=== PATIENT | female | born 1970 | race Caucasian/White ===

== ENCOUNTER → 2016-11-17 | Outpatient (CLI) | payer BC ==
--- NOTE | 2016-11-17 15:37 | P.BASOAP ---
Subjective Principal diagnosis: Morbid obesity Patient has for follow-up. She lap band placed in 2007. She had her gallbladder removed about a year and a half ago. Her band was emptied for the gallbladder surgery and she thinks she had one fill after that. She is not sure how much fluid is in her band. Her weight is actually higher than it was pre-band. She had considered sleeve gastrectomy at one point but this was going to be too expensive for her. About a week ago she had an episode of dysphagia. Following that the patient had some persistent dysphagia and upper abdominal pain. That is since resolved. Objective - Exam Abdomen: Soft, nontender, nondistended Assessment/Plan (1) Morbid obesity Narrative/Plan: Will check upper GI. Patient follow-up with me back in the office following that. No band adjustment at this time. Plan: Date: Initial Weight: Initial BMI: Current Weight: Current BMI: Type of Surgery: Total Volume in Band: Previous Volume: Volume Removed: Volume Added: Band Size:
[2016-11-17 16:03] VITALS: BMI 45.9
--- NOTE | 2016-11-17 16:42 | FL ---
EXAMINATION TYPE: FL barium swallow DATE OF EXAM: 11/17/2016 COMPARISON: NONE HISTORY: Dysphagia episode a week ago, band since 2007 TECHNIQUE: Fluoroscopy. FINDINGS: Preliminary overhead radiograph was obtained. The left band has a normal orientation, and t he laparoscopic band is intact. Fluoroscopic guidance was provided during procedure performed by Dr. Cardona. A total of 63 sec onds of fluoroscopic time was utilized during the procedure and 11 spot images was acquired. Omnipaque 350 was ingested for several swallows. The oral contrast flowed freely from the thoracic es ophagus on into the stomach and on into the proximal small bowel. There is no extravasation. No focal findings. AP, ROHIT, and OJEDA and lateral standing upright fluoroscopy was used for the examination. The patient tolerated the examination without symptoms. There were no incidental extraluminal findings. IMPRESSION: Fluoroscopic lap banding evaluation as as discussed.
== END | disposition home or self-care (01) ==
LOC: BARWHC3 14:12
PROVIDERS: ATTEND Surgery
DX: E66.01 Morbid (severe) obesity due to excess calories (principal); Z71.3 Dietary counseling and surveillance; R13.10 Dysphagia, unspecified; Z98.84 Bariatric surgery status
CPT/HCPCS: 74220; 97803; 99201

== ENCOUNTER → 2018-06-28 | Outpatient (CLI) | payer OTHER ==
[2018-06-28 13:38] VITALS: BP 120/86; PULSE 111; RESP 16; TEMP 97.8; BMI 41.9
--- NOTE | 2018-06-28 18:23 | P.BASOAP ---
Subjective Progress Note Date: 06/28/18 Principal diagnosis: Morbid obesity Patient returns today for evaluation. Patient last seen in 2017. Patient had a upper GI following that which was normal. She says she has episodes of emesis from dysphasia 3 times per week. Usually to meats. She has lost 25 pounds. She is considering conversion to an alternate bariatric procedure. Objective - Vital Signs Vital signs: Vital Signs Temp 97.8 F 06/28/18 13:34 Pulse 111 H 06/28/18 13:34 Resp 16 06/28/18 13:34 BP 120/86 06/28/18 13:34 Pulse Ox Intake & Output 06/27/18 06/28/18 06/28/18 18:59 06:59 18:59 Weight 114.305 kg - Exam Abdomen: Soft, nontender, nondistended Assessment/Plan (1) Morbid obesity Narrative/Plan: Patient interested in having the band loosened at this time. The patient's lap band port was palpated. The site was aseptically prepped. The Burks needle was advanced into the port. A total of 1 ml of fluid was activated for a total of approximately 4 m. Pressure was held and a sterile dressing was applied. We discussed the options of conversion. Patient leaning towards gastric bypass which I believe is reasonable. She will investigate her insurance coverage for this procedure. She plans to attend an upcoming bariatric seminar. Plan: Date: 06/28/18 Initial Weight: 114.305 kg Initial BMI: 41.9 Current Weight: 114.305 kg Current BMI: 41.9 Type of Surgery: Total Volume in Band: Previous Volume: Volume Removed: Volume Added: Band Size:
== END | disposition home or self-care (01) ==
LOC: BARWHC3 13:20
PROVIDERS: ATTEND Surgery
DX: E66.01 Morbid (severe) obesity due to excess calories (principal); Z68.41 Body mass index [BMI] 40.0-44.9, adult; Z98.84 Bariatric surgery status
CPT/HCPCS: 99211

== ENCOUNTER → 2018-08-24 | Outpatient (CLI) | payer OTHER ==
[2018-08-24 15:24] VITALS: BP 114/78; PULSE 64; RESP 16; TEMP 98; BMI 43.6
--- NOTE | 2018-08-24 15:42 | P.HPBAR ---
Bariatric H&P - History & Physicial H&P Date: 08/24/18 History & Physicial: Visit/CC: WANTS BAND OUT/REVISION Patient initial contact: Initial weight: 114.305 kg Initial weight in pounds: 252.00 Height: 5 ft 5 in Initial BMI: 41.9 Last weight: Current weight: 118.841 kg Current weight in pounds: 262.00 Current BMI: 43.6 [place] body weight (based on NIH guidelines): 56.699 kg Excess body weight loss: The patient is a 47 year-old F who presents for Bariatric Assessment. HPI: She comes in with troubles with band and dysphagia. Band removal. Recommend EGD. All fluid removed from the band with GERD. She reports trouble with swallowing after her band placement. She is looking into the gastric bypass. Gallbladder is out. ABDOMEN: Protuberant MS: 1+ edema ASSESSMENT: 1. Adjustable gastric band 2. GERD PLAN: 1. Band removal with EGD 2. Esophagram for esophageal motility. 3. Labs with EKG 4. She is looking the gastric bypass Past Medical History Past Medical History: Hyperlipidemia, Hypertension History of Any Multi-Drug Resistant Organisms: None Reported Past Surgical History: Tubal Ligation Additional Past Surgical History / Comment(s): lap band Past Psychological History: No Psychological Hx Reported Smoking Status: Never smoker Past Alcohol Use History: Rare Past Drug Use History: None Reported Surgical - Exam Vital Signs Temp Pulse Resp BP 98 F 64 16 114/78 08/24/18 15:21 08/24/18 15:21 08/24/18 15:21 08/24/18 15:21 Bariatric Checklist Checklist: Plan: Checklist: EGD: 1. Hiatal hernia: 2. H. Pylori: HgbA1c: Vitamin D: Smoking: Never smoker Primary care physician referral: [facility] Psychiatry clearance: Cardiology clearance: Sleep study: Diet journal: VTE risk score: VTE risk level: Rehab needs at discharge:
[2018-08-24 16:34] LABS: HCT 37.5 % (34.0-46.0); HGB 12.5 gm/dL (11.4-16.0); MCH 29.4 pg (25.0-35.0); MCHC 33.3 g/dL (31.0-37.0); MCV 88.5 fL (80.0-100.0); Mean Platelet Volume 6.2; Platelet Count 262 k/uL (150-450); RBC 4.24 m/uL (3.80-5.40); RDW 14.8 % (11.5-15.5); WBC 8.3 k/uL (3.8-10.6)
[2018-08-24 16:44] LABS: INR 0.9 (<1.2); Partial Thromboplastin Time 25.6 sec (22.0-30.0); Prothrombin Time 9.5 sec (9.0-12.0)
[2018-08-25 01:33] LABS: Iron Saturation 15.64 (12.00-45.00)
[2018-08-25 01:40] LABS: Albumin 4.4 g/dL (3.80-4.90); Albumin/Globulin Ratio 2.1 (1.60-3.17); Anion Gap 10.9 mmol/L (4.00-12.00); Calcium 9.2 mg/dL (8.7-10.3); Carbon Dioxide 25.1 mmol/L (21.6-31.8); Globulin 2.1 g/dL (1.6-3.3); LDL Cholesterol,Calculated 92.2 mg/dL (0.0-131.0); Phosphorus 3.9 mg/dL (2.4-5.1); Total Bilirubin 0.4 mg/dL (0.3-1.2); Total Protein 6.5 g/dL (6.2-8.2); VLDL Calculation 51.8 mg/dL (5.00-40.00)
[2018-08-25 01:43] LABS: Vitamin D 25 Hydroxy 22.3 ng/mL (30.0-100.0)
[2018-08-25 01:45] LABS: Folate, Serum 11.6 ng/mL
[2018-08-25 01:54] LABS: Parathyroid Hormone Intact 77.6 pg/mL (14.0-72.0)
[2018-08-25 03:14] LABS: Hemoglobin A1C 6.7 % (4.0-6.0)
[2018-08-25 14:55] LABS: Zinc, Serum 60 ug/dL (60-130)
[2018-08-26 06:14] LABS: Vitamin A 45 ug/dL (38-106)
[2018-08-26 10:08] LABS: Vit B1(Thiamine) 83 ug/L (38-122)
[2018-08-27 13:22] LABS: Selenium 107 mcg/L (63-160)
== END ==
LOC: BARWHC3 13:46
PROVIDERS: ATTEND Surgery Plastic and Reconstructive Surgery
DX: K95.09 Other complications of gastric band procedure (principal); R13.10 Dysphagia, unspecified; K21.9 Gastro-esophageal reflux disease without esophagitis; E66.01 Morbid (severe) obesity due to excess calories; E78.5 Hyperlipidemia, unspecified; I10 Essential (primary) hypertension; E21.1 Secondary hyperparathyroidism, not elsewhere classified; D50.9 Iron deficiency anemia, unspecified; E44.0 Moderate protein-calorie malnutrition; E55.9 Vitamin D deficiency, unspecified; K74.1 Hepatic sclerosis; N19 Unspecified kidney failure; K50.90 Crohn's disease, unspecified, without complications; Z90.49 Acquired absence of other specified parts of digestive tract; Z98.51 Tubal ligation status; Z98.84 Bariatric surgery status; Z68.41 Body mass index [BMI] 40.0-44.9, adult
CPT/HCPCS: 84255; 84134; 84425; 80061; 80053; 82607; 82728; 82525; 82746; 83540; 83550; 83735; 84100; 84443; 84590; 84630; 85027; 85610; 85730; 82306; 83970; 83036; 36415; G0463; 99211

== ENCOUNTER 2018-12-19 12:04 | Day surgery (SDC) | payer OTHER ==
[2018-12-15 15:52] VITALS: BMI 43.7
--- NOTE | 2018-12-18 13:24 | P.GSHP ---
History of Present Illness H&P Date: 12/19/18 CHIEF COMPLAINT: GERD HISTORY OF PRESENT ILLNESS: The patient is a 47-year-old female who presents reports gastroesophageal reflux disease. Upper endoscopy was offered for further evaluation and management. PAST MEDICAL HISTORY: Please see list. PAST SURGICAL HISTORY: Please see list. MEDICATIONS: Please see list. ALLERGIES: Please see list. SOCIAL HISTORY: No illicit drug use FAMILY HISTORY: No reports of Crohn disease or ulcerative colitis. REVIEW OF ORGAN SYSTEMS: CONSTITUTIONAL: No reports of fevers or chills. GI: Denies any blood in stools or constipation. PHYSICAL EXAM: VITAL SIGNS: Stable GENERAL: Well-developed and pleasant in no acute distress. HEENT: No scleral icterus. Extraocular movements grossly intact. Moist buccal mucosa. NECK: Supple without lymphadenopathy. CHEST: Unlabored respirations. Equal bilateral excursions. CARDIOVASCULAR: Regular rate and rhythm. Distal 2+ pulses. ABDOMEN: Soft, nondistended. MUSCULOSKELETAL: No clubbing, cyanosis, or edema. ASSESSMENT: 1. Gastroesophageal reflux disease PLAN: 1. Recommend proceeding with an upper endoscopy Past Medical History Past Medical History: Diabetes Mellitus, Hyperlipidemia, Hypertension History of Any Multi-Drug Resistant Organisms: None Reported Past Surgical History: Bariatric Surgery, Cholecystectomy, Tubal Ligation Additional Past Surgical History / Comment(s): lap band. EGD Past Anesthesia/Blood Transfusion Reactions: Postoperative Nausea & Vomiting (PONV) Smoking Status: Never smoker - Past Family History Mother Family Medical History: No Reported History Medications and Allergies Home Medications Medication Instructions Recorded Confirmed Type Lisinopril [Zestril] 10 mg PO HS 03/03/15 12/15/18 History Pravastatin Sodium [Pravachol] 10 mg PO HS 03/03/15 12/15/18 History Furosemide [Lasix] 10 mg PO DAILY 11/20/16 12/15/18 History metFORMIN HCL [Glucophage] 500 mg PO DAILY 06/28/18 12/15/18 History Ergocalciferol [Vitamin D2 50,000 unit PO TH 08/30/18 12/15/18 History (DRISDOL)] Venlafaxine HCl [Effexor XR] 225 mg PO HS 12/15/18 12/15/18 History Allergies Allergy/AdvReac Type Severity Reaction Status Date / Time No Known Allergies Allergy Verified 12/15/18 15:37
[~2018-12-19 12:04] MED LIST: LACTATED RINGERS 1,000 ML IV SCH; LIDOCAINE 1% 20 ML VIAL (10MG/ML) FOR IV START INTRADERMA PRN
[2018-12-19] MEDS ORDERED: LACTATED RINGERS 1,000 ML IV ONE (12:34)
[2018-12-19 12:39] VITALS: TEMP 97.8
[2018-12-19 12:43] LABS: Glucose,Whole Blood 119 mg/dL (75-99)
[2018-12-19] MEDS ORDERED: LIDOCAINE 1% 20 ML VIAL (10MG/ML) FOR IV START INTRADERMA ONE (12:43)
[2018-12-19] MEDS ORDERED: PROPOFOL 10 MG/ML 20 ML VIAL IV ONE (12:54)
[2018-12-19] MEDS ORDERED: LIDOCAINE 1% INJ 10MG/ML (20 ML MDV) ONE (12:54)
--- NOTE | 2018-12-19 13:05 | P.PCN ---
Date of Procedure: 12/19/18 Description of Procedure: PREOPERATIVE DIAGNOSIS: Gastroesophageal reflux disease. Morbid obesity. POSTOPERATIVE DIAGNOSIS: Morbid obesity. Gastritis. Gastroesophageal reflux disease. Diaphragmatic hiatal hernia OPERATION: Esophagogastroduodenoscopy with biopsies along antrum. SURGEON: Elvia Burrows MD ANESTHESIA: MAC. INDICATIONS: The patient is a 47-year-old female who presents with a history of reflux disease. Benefits and risks of the procedure were described. Informed consent was obtained. DESCRIPTION: The patient was brought into the endoscopy suite and laid in the left lateral decubitus position. An Olympus gastroscope was passed along the posterior oropharynx down to the distal esophagus where the squamocolumnar junction was encountered at 35 cm from the incisors. The stomach was entered and no bile reflux was found. Additional findings are listed below. Biopsies with cold forceps were obtained of the antrum. The first through third portion of the duodenum was examined and unremarkable. Retroflexion of the scope confirmed Hill grade 3 lower esophageal valve. The squamocolumnar junction demonstrated LA grade B erosive esophagitis. The stomach was desufflated. The patient tolerated the procedure well. FINDINGS: Squamocolumnar junction 35 cm from the incisors. Diaphragmatic hiatus at 40 cm. Hiatal hernia, 5 cm Hill grade 3 lower esophageal valve. LA grade B erosive esophagitis. No active duodenitis. Chronic gastritis RECOMMENDATIONS: Upper endoscopy as needed. Plan - Discharge Summary Discharge Rx Participant: No New Discharge Prescriptions: No Action Pravastatin Sodium [Pravachol] 10 mg PO HS Lisinopril [Zestril] 10 mg PO HS Furosemide [Lasix] 10 mg PO DAILY metFORMIN HCL [Glucophage] 500 mg PO DAILY Ergocalciferol [Vitamin D2 (DRISDOL)] 50,000 unit PO TH Venlafaxine HCl [Effexor XR] 225 mg PO HS Discharge Medication List Lisinopril [Zestril] 10 mg PO HS 03/03/15 [History] Pravastatin Sodium [Pravachol] 10 mg PO HS 03/03/15 [History] Furosemide [Lasix] 10 mg PO DAILY 11/20/16 [History] metFORMIN HCL [Glucophage] 500 mg PO DAILY 06/28/18 [History] Ergocalciferol [Vitamin D2 (DRISDOL)] 50,000 unit PO TH 08/30/18 [History] Venlafaxine HCl [Effexor XR] 225 mg PO HS 12/15/18 [History] Follow up Appointment(s)/Referral(s): [facility] [[facility]-STAFF] - 01/04/19 Patient Instructions/Handouts: *Sur[facility] - (Anesthesia) Endoscopy Discharge Instructions, Hiatal Hernia (GEN), Gastroesophageal Reflux Disease (DC) Discharge Disposition: HOME SELF-CARE
[2018-12-19 13:09] VITALS: RESP 16
[2018-12-19 13:27] VITALS: BP 111/76; PULSE 74
== END 2018-12-19 13:34 | disposition home or self-care (01) ==
LOC: ORWHC2ENDO 12:04
PROVIDERS: ATTEND Surgery Plastic and Reconstructive Surgery
DX: K21.9 Gastro-esophageal reflux disease without esophagitis (principal); K29.50 Unspecified chronic gastritis without bleeding; K20.8 Other esophagitis; K44.9 Diaphragmatic hernia without obstruction or gangrene; I10 Essential (primary) hypertension; E78.5 Hyperlipidemia, unspecified; E11.9 Type 2 diabetes mellitus without complications; F41.9 Anxiety disorder, unspecified; Z98.84 Bariatric surgery status; E66.01 Morbid (severe) obesity due to excess calories; Z68.41 Body mass index [BMI] 40.0-44.9, adult; Z90.49 Acquired absence of other specified parts of digestive tract; Z98.51 Tubal ligation status; Z79.84 Long term (current) use of oral hypoglycemic drugs; Z79.899 Other long term (current) drug therapy
CPT/HCPCS: 43239; 88305; 81025; J2001; J2704

== ENCOUNTER → 2019-01-04 | Outpatient (CLI) | payer OTHER ==
[2019-01-04 16:09] VITALS: BP 135/80; PULSE 78; TEMP 98.1; BMI 43.6
--- NOTE | 2019-01-04 16:59 | P.PN ---
Subjective Progress Note Date: 01/04/19 DATE OF SERVICE: 01/04/2019 CHIEF COMPLAINT: Bariatric evaluation. HISTORY OF PRESENT ILLNESS: Dinorah Ponce is a 47-year-old female who comes with lifelong morbid obesity. She comes in with troubles with her gastric band and dysphagia. She is looking into the gastric bypass. She is doing medical s upervised weight loss. She completed an upper endoscopy. She is looking to have her band removed. At height of 5 feet 5 inches, her ideal body weight is 149 pounds. She comes in 261 pounds, unchanged since her last visit 4 months ago. Her body mass index was 43.6. She is 119 pounds overweight. PAST MEDICAL HISTORY: 1. Morbid obesity due to excess calories 2. Body mass index of 43.6, initial 3. Osteoarthritis of the knees. 4. Osteoarthritis of the lower back. 5. Hypertensive heart disease. 6. Gastroesophageal reflux disease 7. Hyperlipidemia 8. Depressive disorder 9. Diabetes type 2 10. Vitamin D deficiency PAST SURGICAL HISTORY: 1. Tubal ligation 2. Cholecystectomy HOME MEDICATIONS: ALLERGIES: Medications and Allergies Home Medications Medication Instructions Recorded Confirmed Type Lisinopril [Zestril] 10 mg PO DAILY 03/03/15 08/25/18 History Pravastatin Sodium [Pravachol] 10 mg PO HS 03/03/15 08/25/18 History Furosemide [Lasix] 1 tab PO DAILY 11/20/16 08/25/18 History Venlafaxine HCl [Effexor] 50 mg PO DAILY 06/28/18 08/25/18 History metFORMIN HCL [Glucophage] 500 mg PO DAILY 06/28/18 08/25/18 History Ergocalciferol [Vitamin D2 50,000 unit PO WEEKLY 08/30/18 08/30/18 History (DRISDOL)] Allergies Allergy/AdvReac Type Severity Reaction Status Date / Time No Known Allergies Allergy Verified 08/25/18 13:06 SOCIAL HISTORY: No past tobacco use. FAMILY HISTORY: No family history of ulcerative colitis disease or Crohn's disease. Family history of morbid obesity. No lupus in the family. No reports of stomach or esophageal cancer. REVIEW OF ORGAN SYSTEMS: CONSTITUTIONAL: At height of 5 feet 5 inches, her ideal body weight is 149 pounds. She comes in 261 pounds. Her body mass index was 43.6. She is 119 po unds overweight. HEENT: Denies any active troubles with vision or hearing. No troubles with swallowing. ENDOCRINE: Has blood sugar intolerance. No hypothyroidism. CARDIOVASCULAR: No reports of palpitations or heart attacks or chest pain. RESPIRATORY: No daytime somnolence. No asthma. GI: Denies any bright red blood per rectum. No diarrhea. No constipation. MUSCULOSKELETAL: Has lower back pain and joint pain. Has osteoarthritis of the knees. NEURO: No headaches. No seizure disorders. PSYCH: Has depression. No suicidal ideation. RHEUMATOLOGIC: No lupus. No rheumatoid arthritis. HEMATOLOGIC: Denies any abnormal bleeding or bruising. No personal history of DVTs. SKIN: No rash. No skin cancer. PHYSICAL EXAM: VITAL SIGNS: Height 5 foot 5 inches, weight 261 pounds. BMI 43.6 Vital Signs Temp 98.1 F 01/04/19 16:06 Pulse 78 01/04/19 16:06 Resp BP 135/80 01/04/19 16:06 Pulse Ox GENERAL: Well-developed in no acute distress. HEENT: No scleral icterus. Extraocular movements grossly intact. Hears conversational speech. No nasal drainage. NECK: Supple without lymphadenopathy. CHEST: Nonlabored respirations with equal bilateral excursions. CARDIOVASCULAR: Regular rate and regular rhythm. Distal 2+ pulses. ABDOMEN: Obese, soft, nontender, nondistended. Protuberant. MUSCULOSKELETAL: No clubbing, cyanosis. Gross strength 5/5 distal lower extremities. 1+ edema pre-tibial. NEURO: No focal or lateralizing signs. Cranial nerves 2 through 12 grossly within normal limits. PSYCH: Appropriate affect. Alert and oriented to person, place and time. SKIN: Good skin turgor. Well perfused. EGD FINDINGS: Squamocolumnar junction 35 cm from the incisors. Diaphragmatic hiatus at 40 cm. Hiatal hernia, 5 cm Hill grade 3 lower esophageal valve. LA grade B erosive esophagitis. No active duodenitis. Chronic gastritis Final Pathologic Diagnosis GASTRIC ANTRUM, BIOPSY: Chronic gastritis. Helicobacter pylori organisms are not identified on routine H+E sections. LABS: Hemoglobin A1C 6.7%, Triglycerides elevated, Vitamin D low 22, PTH elevated ASSESSMENT: 1. Morbid obesity due to excess calories 2. Body mass index of 43.6, initial 3. Osteoarthritis of the knees. 4. Osteoarthritis of the lower back. 5. Hypertensive heart disease. 6. Gastroesophageal reflux disease 7. Hyperlipidemia 8. Depressive disorder 9. Diabetes type 2 10. Vitamin D deficiency 11. Adjustable gastric band with complications 12. Esophageal dysmotility 13. Dysphagia due to adjustable gastric band 14. Hiatal hernia 15. Secondary hyperparathyroidism PLAN: 1. She has new hiatal hernia, may need repair 2. Recommend removal of the band for complications from her adjustable gastric band including abdominal pain. 3. She wants the bypass to address her reflux disease. She is high risk as a conversion. 4. Vitamin D supplement 10,000 daily for treatment of Vitamin D deficiency and new secondary hyperparathyroidism. 5. Recommend food and exercise journal. Objective - Vital Signs Vital signs: Vital Signs Temp 98.1 F 01/04/19 16:06 Pulse 78 01/04/19 16:06 Resp BP 135/80 01/04/19 16:06 Pulse Ox Intake & Output 01/03/19 01/04/19 01/04/19 18:59 06:59 18:59 Weight 118.841 kg
== END | disposition home or self-care (01) ==
LOC: BARWHC3 15:45
PROVIDERS: ATTEND Surgery Plastic and Reconstructive Surgery
DX: E66.01 Morbid (severe) obesity due to excess calories (principal); M17.0 Bilateral primary osteoarthritis of knee; I11.9 Hypertensive heart disease without heart failure; K21.9 Gastro-esophageal reflux disease without esophagitis; E78.5 Hyperlipidemia, unspecified; F32.9 Major depressive disorder, single episode, unspecified; E11.9 Type 2 diabetes mellitus without complications; E55.9 Vitamin D deficiency, unspecified; K22.4 Dyskinesia of esophagus; R13.10 Dysphagia, unspecified; K44.9 Diaphragmatic hernia without obstruction or gangrene; N25.81 Secondary hyperparathyroidism of renal origin; K95.09 Other complications of gastric band procedure; Z68.41 Body mass index [BMI] 40.0-44.9, adult; Z79.899 Other long term (current) drug therapy; Z79.84 Long term (current) use of oral hypoglycemic drugs; Z90.49 Acquired absence of other specified parts of digestive tract; Z98.51 Tubal ligation status
CPT/HCPCS: 99211

== ENCOUNTER → 2019-01-16 | Outpatient (CLI) | payer OTHER ==
[2019-01-16 09:46] VITALS: BMI 44.2
== END | disposition home or self-care (01) ==
LOC: BARWHC3 08:36
PROVIDERS: ATTEND Surgery Plastic and Reconstructive Surgery
DX: E66.01 Morbid (severe) obesity due to excess calories (principal); Z68.41 Body mass index [BMI] 40.0-44.9, adult
CPT/HCPCS: 97804

== ENCOUNTER → 2019-05-10 | Outpatient (CLI) | payer OTHER ==
[2019-05-10 16:35] LABS: Basophils % (A) 0 %; Eosinophils # (A) 0.1 k/uL (0-0.7); Eosinophils % (A) 1 %; HCT 43.9 % (34.0-46.0); HGB 14.4 gm/dL (11.4-16.0); Lymphocytes # (A) 1.7 k/uL (1.0-4.8); Lymphocytes % (A) 24 %; MCH 29.2 pg (25.0-35.0); MCHC 32.7 g/dL (31.0-37.0); MCV 89.1 fL (80.0-100.0); Mean Platelet Volume 6.6; Monocytes # (A) 0.3 k/uL (0-1.0); Monocytes % (A) 5 %; Neutrophils # (A) 4.6 k/uL (1.3-7.7); Neutrophils % (A) 67 %; Platelet Count 285 k/uL (150-450); RBC 4.93 m/uL (3.80-5.40); RDW 13.6 % (11.5-15.5); WBC 6.8 k/uL (3.8-10.6)
[2019-05-10 16:42] LABS: ALT 25 U/L (9-52); AST 26 U/L (14-36); African American GFR (CKD) >90 (>60 ml/min/1.73 sqM); Albumin 4.6 g/dL (3.5-5.0); Alkaline Phosphatase 92 U/L (38-126); Anion Gap 10 mmol/L; Blood Urea Nitrogen 10 mg/dL (7-17); Carbon Dioxide 27 mmol/L (22-30); Chloride 101 mmol/L (98-107); Glucose 144 mg/dL (74-99); Non-African American GFR(CKD) >90 (>60 ml/min/1.73 sqM); Potassium 4.3 mmol/L (3.5-5.1); Sodium 138 mmol/L (137-145); Total Bilirubin 0.8 mg/dL (0.2-1.3); Total Protein 7.7 g/dL (6.3-8.2)
== END | disposition home or self-care (01) ==
LOC: LABPAT 15:51
PROVIDERS: ATTEND Surgery Plastic and Reconstructive Surgery
DX: Z01.812 Encounter for preprocedural laboratory examination (principal); Z98.84 Bariatric surgery status
CPT/HCPCS: 36415; 80053; 85025

== ENCOUNTER → 2019-05-10 | Outpatient (CLI) | payer OTHER ==
--- NOTE | 2019-05-10 15:30 | P.PN ---
Subjective Progress Note Date: 05/10/19 DATE OF SERVICE: 05/10/2019 CHIEF COMPLAINT: Bariatric evaluation. HISTORY OF PRESENT ILLNESS: Dinorah Ponce is a 47-year-old female who comes with lifelong morbid obesity. She comes in with troubles with her gastric band and dysphagia. She is looking into the gastric bypass. She has completed medical supervised weight loss. She reports moderate gastroesophageal reflux disease. At height of 5 feet 5 inches, her ideal body weight is 149 pounds. She comes in 265 pounds from 261 pounds, 5 months ago. Her body mass index is 44.3. She is 116 pounds overweight. PAST MEDICAL HISTORY: 1. Morbid obesity due to excess calories 2. Body mass index of 44.3 3. Osteoarthritis of the knees. 4. Osteoarthritis of the lower back. 5. Hypertensive heart disease. 6. Gastroesophageal reflux disease 7. Hyperlipidemia 8. Depressive disorder 9. Diabetes type 2 10. Vitamin D deficiency PAST SURGICAL HISTORY: 1. Tubal ligation 2. Cholecystectomy HOME MEDICATIONS: ALLERGIES: Medications and Allergies Home Medications Medication Instructions Recorded Confirmed Type Lisinopril [Zestril] 10 mg PO DAILY 03/03/15 08/25/18 History Pravastatin Sodium [Pravachol] 10 mg PO HS 03/03/15 08/25/18 History Furosemide [Lasix] 1 tab PO DAILY 11/20/16 08/25/18 History Venlafaxine HCl [Effexor] 50 mg PO DAILY 06/28/18 08/25/18 History metFORMIN HCL [Glucophage] 500 mg PO DAILY 06/28/18 08/25/18 History Ergocalciferol [Vitamin D2 50,000 unit PO WEEKLY 08/30/18 08/30/18 History (DRISDOL)] Allergies Allergy/AdvReac Type Severity Reaction Status Date / Time No Known Allergies Allergy Verified 08/25/18 13:06 SOCIAL HISTORY: No past tobacco use. FAMILY HISTORY: No family history of ulcerative colitis disease or Crohn's disease. Family history of morbid obesity. No lupus in the family. No reports of stomach or esophageal cancer. REVIEW OF ORGAN SYSTEMS: CONSTITUTIONAL: At height of 5 feet 5 inches, her ideal body weight is 149 pounds. Her body mass index was 44.3. She is 116 pounds overweight. HEENT: Denies any active troubles with vision or hearing. No troubles with swallowing. ENDOCRINE: Has blood sugar intolerance. No hypothyroidism. CARDIOVASCULAR: No reports of palpitations or heart attacks or chest pain. RESPIRATORY: No daytime somnolence. No asthma. GI: Denies any bright red blood per rectum. No diarrhea. No constipation. MUSCULOSKELETAL: Has lower back pain and joint pain. Has osteoarthritis of the knees. NEURO: No headaches. No seizure disorders. PSYCH: Has depression. No suicidal ideation. RHEUMATOLOGIC: No lupus. No rheumatoid arthritis. HEMATOLOGIC: Denies any abnormal bleeding or bruising. No personal history of DVTs. SKIN: No rash. No skin cancer. PHYSICAL EXAM: VITAL SIGNS: Height 5 foot 5 inches, weight 265 pounds. BMI 44.3 Vital Signs Temp 97.7 F 05/10/19 15:29 Pulse 84 05/10/19 15:29 Resp BP 137/88 05/10/19 15:29 Pulse Ox GENERAL: Well-developed in no acute distress. HEENT: No scleral icterus. Extraocular movements grossly intact. Hears conve rsational speech. No nasal drainage. NECK: Supple without lymphadenopathy. CHEST: Nonlabored respirations with equal bilateral excursions. CARDIOVASCULAR: Regular rate and regular rhythm. Distal 2+ pulses. ABDOMEN: Obese, soft, nontender, nondistended. Protuberant. MUSCULOSKELETAL: No clubbing, cyanosis. Gross strength 5/5 distal lower extremities. 1+ edema pre-tibial. NEURO: No focal or lateralizing signs. Cranial nerves 2 through 12 grossly within normal limits. PSYCH: Appropriate affect. Alert and oriented to person, place and time. SKIN: Good skin turgor. Well perfused. ASSESSMENT: 1. Morbid obesity due to excess calories 2. Body mass index of 44.3 3. Osteoarthritis of the knees. 4. Osteoarthritis of the lower back. 5. Hypertensive heart disease. 6. Gastroesophageal reflux disease 7. Hyperlipidemia 8. Depressive disorder 9. Diabetes type 2 10. Vitamin D deficiency 11. Adjustable gastric band with complications 12. Esophageal dysmotility 13. Dysphagia due to adjustable gastric band 14. Hiatal hernia 15. Secondary hyperparathyroidism PLAN: 1. She comes in with complications with her band and dysphagia and pain. 2. Recommend band removal of her adjustable gastric band. 3. She is elevated risk for complications with history of hiatal hernia.
[2019-05-10 15:41] VITALS: BP 137/88; PULSE 84; TEMP 97.7; BMI 44.2
== END | disposition home or self-care (01) ==
LOC: BARWHC3 14:13
PROVIDERS: ATTEND Surgery Plastic and Reconstructive Surgery
DX: E66.01 Morbid (severe) obesity due to excess calories (principal); Z68.41 Body mass index [BMI] 40.0-44.9, adult; M17.0 Bilateral primary osteoarthritis of knee; M47.816 Spondylosis without myelopathy or radiculopathy, lumbar region; I11.9 Hypertensive heart disease without heart failure; K21.9 Gastro-esophageal reflux disease without esophagitis; E78.5 Hyperlipidemia, unspecified; F32.9 Major depressive disorder, single episode, unspecified; E11.9 Type 2 diabetes mellitus without complications; E55.9 Vitamin D deficiency, unspecified; K44.9 Diaphragmatic hernia without obstruction or gangrene; N25.81 Secondary hyperparathyroidism of renal origin; K95.09 Other complications of gastric band procedure; K22.4 Dyskinesia of esophagus; Z90.49 Acquired absence of other specified parts of digestive tract; Z98.51 Tubal ligation status; Z79.84 Long term (current) use of oral hypoglycemic drugs; Z79.899 Other long term (current) drug therapy
CPT/HCPCS: 99211

== ENCOUNTER 2019-05-22 11:37 | Day surgery (SDC) | payer OTHER ==
[2019-05-18 10:04] VITALS: BMI 43.2
--- NOTE | 2019-05-22 09:24 | P.GSHP ---
History of Present Illness H&P Date: 05/22/19 DATE OF SERVICE: 05/22/2019 CHIEF COMPLAINT: complications from adjustable gastric band HISTORY OF PRESENT ILLNESS: Dinorah Ponce is a 47-year-old female who comes with lifelong morbid obesity. She comes in with troubles with her gastric band and dysphagia. She is looking into the gastric bypass. She is doing medical supervised weight loss. She completed an upper endoscopy. She is looking to have her band removed. At height of 5 feet 5 inches, her ideal body weight is 149 pounds. She comes in 261 pounds, unchanged since her last visit 4 months ago. Her body mass index was 43.6. She is 119 pounds overweight. PAST MEDICAL HISTORY: 1. Morbid obesity due to excess calories 2. Body mass index of 43.6, initial 3. Osteoarthritis of the knees. 4. Osteoarthritis of the lower back. 5. Hypertensive heart disease. 6. Gastroesophageal reflux disease 7. Hyperlipidemia 8. Depressive disorder 9. Diabetes type 2 10. Vitamin D deficiency PAST SURGICAL HISTORY: 1. Tubal ligation 2. Cholecystectomy HOME MEDICATIONS: ALLERGIES: Medications and Allergies Home Medications Medication Instructions Recorded Confirmed Type Lisinopril [Zestril] 10 mg PO DAILY 03/03/15 08/25/18 History Pravastatin Sodium [Pravachol] 10 mg PO HS 03/03/15 08/25/18 History Furosemide [Lasix] 1 tab PO DAILY 11/20/16 08/25/18 History Venlafaxine HCl [Effexor] 50 mg PO DAILY 06/28/18 08/25/18 History metFORMIN HCL [Glucophage] 500 mg PO DAILY 06/28/18 08/25/18 History Ergocalciferol [Vitamin D2 50,000 unit PO WEEKLY 08/30/18 08/30/18 History (DRISDOL)] Allergies Allergy/AdvReac Type Severity Reaction Status Date / Time No Known Allergies Allergy Verified 08/25/18 13:06 SOCIAL HISTORY: No past tobacco use. FAMILY HISTORY: No family history of ulcerative colitis disease or Crohn's disease. Family history of morbid obesity. No lupus in the family. No reports of stomach or esophageal cancer. REVIEW OF ORGAN SYSTEMS: CONSTITUTIONAL: At height of 5 feet 5 inches, her ideal body weight is 149 pounds. She comes in 261 pounds. Her body mass index was 43.6. She is 119 pounds overweight. HEENT: Denies any active troubles with vision or hearing. No troubles with swallowing. ENDOCRINE: Has blood sugar intolerance. No hypothyroidism. CARDIOVASCULAR: No reports of palpitations or heart attacks or chest pain. RESPIRATORY: No daytime somnolence. No asthma. GI: Denies any bright red blood per rectum. No diarrhea. No constipation. MUSCULOSKELETAL: Has lower back pain and joint pain. Has osteoarthritis of the knees. NEURO: No headaches. No seizure disorders. PSYCH: Has depression. No suicidal ideation. RHEUMATOLOGIC: No lupus. No rheumatoid arthritis. HEMATOLOGIC: Denies any abnormal bleeding or bruising. No personal history of DVTs. SKIN: No rash. No skin cancer. PHYSICAL EXAM: VITAL SIGNS: Height 5 foot 5 inches, weight 261 pounds. BMI 43.6 GENERAL: Well-developed in no acute distress. HEENT: No scleral icterus. Extraocular movements grossly intact. Hears conversational speech. No nasal drainage. NECK: Supple without lymphadenopathy. CHEST: Nonlabored respirations with equal bilateral excursions. CARDIOVASCULAR: Regular rate and regular rhythm. Distal 2+ pulses. ABDOMEN: Obese, soft, nontender, nondistended. Protuberant. MUSCULOSKELETAL: No clubbing, cyanosis. Gross strength 5/5 distal lower extremities. 1+ edema pre-tibial. NEURO: No focal or lateralizing signs. Cranial nerves 2 through 12 grossly within normal limits. PSYCH: Appropriate affect. Alert and oriented to person, place and time. SKIN: Good skin turgor. Well perfused. ASSESSMENT: 1. Morbid obesity due to excess calories 2. Body mass index of 43.6, initial 3. Osteoarthritis of the knees. 4. Osteoarthritis of the lower back. 5. Hypertensive heart disease. 6. Gastroesophageal reflux disease 7. Hyperlipidemia 8. Depressive disorder 9. Diabetes type 2 10. Vitamin D deficiency 11. Adjustable gastric band with complications 12. Esophageal dysmotility 13. Dysphagia due to adjustable gastric band 14. Hiatal hernia 15. Secondary hyperparathyroidism PLAN: 1. Recommend removal of the band for complications from her adjustable gastric band including abdominal pain. 2. DVT prophylaxis 3. Antibiotic prophylaxis Past Medical History Past Medical History: Diabetes Mellitus, Hyperlipidemia, Hypertension History of Any Multi-Drug Resistant Organisms: None Reported Past Surgical History: Bariatric Surgery, Cholecystectomy, Tubal Ligation Additional Past Surgical History / Comment(s): lap band. EGD Past Anesthesia/Blood Transfusion Reactions: Postoperative Nausea & Vomiting (PONV) Smoking Status: Never smoker - Past Family History Mother Family Medical History: No Reported History Medications and Allergies Home Medications Medication Instructions Recorded Confirmed Type Lisinopril [Zestril] 10 mg PO HS 03/03/15 05/18/19 History Pravastatin Sodium [Pravachol] 10 mg PO HS 03/03/15 05/18/19 History Furosemide [Lasix] 10 mg PO DAILY PRN 11/20/16 05/18/19 History metFORMIN HCL [Glucophage] 500 mg PO DAILY 06/28/18 05/18/19 History Ergocalciferol [Vitamin D2 50,000 unit PO TH 08/30/18 05/18/19 History (DRISDOL)] Venlafaxine HCl [Effexor XR] 225 mg PO HS 12/15/18 05/18/19 History Allergies Allergy/AdvReac Type Severity Reaction Status Date / Time No Known Allergies Allergy Verified 05/18/19 09:57
[~2019-05-22 11:37] MED LIST changes: +ACETAMINOPHEN TAB 500 MG TAB PO STA; +CHLORHEXIDINE GLUCONATE 15 ML CUP MUCOUS MEM ONE; +DEXAMETHASONE SOD PHOSPHATE 10 MG/ML 1 ML VIAL IV ONE; +ENOXAPARIN 40 MG/0.4 ML SYRINGE SQ STA; +GABAPENTIN 300 MG CAP PO STA; +ONDANSETRON 4 MG/2 ML VIAL IVP ONE; +PANTOPRAZOLE 40 MG/10 ML VIAL IV STA; +SCOPOLAMINE 1.5MG/72HR PATCH TRANSDERM ONE
[2019-05-22 12:45] LABS: Glucose,Whole Blood 208 mg/dL (75-99)
[2019-05-22] MEDS ORDERED: ROCURONIUM BROMIDE 10 MG/ML 10 ML VIAL IV ONE (13:01)
[2019-05-22] MEDS ORDERED: NEOSTIGMINE 1 MG/ML 10 ML VIAL ONE (13:01)
[2019-05-22] MEDS ORDERED: SUCCINYLCHOLINE CHLORIDE 100 MG/5 ML SYR IV ONE (13:01)
[2019-05-22] MEDS ORDERED: LIDOCAINE 1% INJ 10MG/ML (20 ML MDV) ONE (13:01)
[2019-05-22] MEDS ORDERED: PROPOFOL 10 MG/ML 20 ML VIAL IV ONE (13:01)
[2019-05-22] MEDS ORDERED: GLYCOPYRROLATE 0.2 MG/ML 2 ML VIAL ONE (13:01)
[2019-05-22] MEDS ORDERED: fentaNYL (PF) 50 MCG/ML 2 ML AMP ONE (13:01)
[2019-05-22] MEDS ORDERED: MIDAZOLAM 2 MG/2 ML VIAL ONE (13:01)
[2019-05-22] MEDS ORDERED: BUPIVACAIN-EPI 0.25%-1:200,000 30 ML VIAL SQ ONE ×2 (13:06→13:36)
[2019-05-22] MEDS ORDERED: HYDROmorphone 0.5 MG/0.5 ML SYRINGE IVP ONE (14:08)
[2019-05-22] MEDS ORDERED: KETOROLAC 30 MG/ML 1 ML VIAL IVP ONE (14:50)
[2019-05-22] MEDS: HYDROmorphone 0.5 MG/0.5 ML SYRINGE IVP PRN ×2 (14:50→14:55)
[2019-05-22] MEDS ORDERED: LACTATED RINGERS 1,000 ML IV ONE (15:23)
--- NOTE | 2019-05-22 15:23 | P.OP ---
Date of Procedure: 05/22/19 Description of Procedure: Date of Procedure: 01/16/19 SURGEON: ADELSO ALANIS MD PREOPERATIVE DIAGNOSES: 1. Complications from adjustable gastric band 2. Morbid obesity due to excess calories 3. Body mass index of 44.1 4. Osteoarthritis of the knees. 5. Osteoarthritis of the lower back. 6. Hypertensive heart disease. 7. Gastroesophageal reflux disease 8. Hyperlipidemia 9. Depressive disorder 10. Diabetes type 2 11. Vitamin D deficiency 12. Adjustable gastric band with complications 13. Esophageal dysmotility 14. Dysphagia due to adjustable gastric band 15. Hiatal hernia 16. Secondary hyperparathyroidism POSTOPERATIVE DIAGNOSES: 1. Complications from adjustable gastric band 2. Morbid obesity due to excess calories 3. Body mass index of 44.1 4. Osteoarthritis of the knees. 5. Osteoarthritis of the lower back. 6. Hypertensive heart disease. 7. Gastroesophageal reflux disease 8. Hyperlipidemia 9. Depressive disorder 10. Diabetes type 2 11. Vitamin D deficiency 12. Adjustable gastric band with complications 13. Esophageal dysmotility 14. Dysphagia due to adjustable gastric band 15. Hiatal hernia 16. Secondary hyperparathyroidism 17. Abdominal peritoneal adhesions greater omentum to abdominal wall 18. Moderate superficial gastritis without bleeding 19. Posterior gastric prolapse adjustable gastric band OPERATION: 1. Robotic-assisted da Lemuel Xi laparoscopic removal of adjustable gastric band and all components. 2. Robotic-assisted da Lemuel Xi laparoscopic lysis of adhesions, 30 minutes ANESTHESIA: General with local anesthetic. ESTIMATED BLOOD LOSS: 5 mL SPECIMENS REMOVED: 1. Adjustable gastric band and components Condition: stable Disposition: same day COMPLICATIONS: None. Operative Findings: 1. Moderate adhesions along the epigastrium including right upper quadrant and right lower quadrant omentum to abdominal wall 2. Allergan adjustable gastric band removed in total 3. Posterior gastric prolapse and complications from adjustable gastric band identified INDICATIONS: Dinorah Ponce is a 48-year-old female who comes with lifelong morbid obesity. She comes in with troubles with her gastric band and dysphagia. At height of 5 feet 5 inches, her ideal body weight is 149 pounds. She comes in 264 pounds. Her body mass index was 44.1. She is over 119 pounds overweight. Surgical options were described including removal of the band. As she has persistent pain and discomfort from the band, removal of the adjustable gastric band and port including all components was proposed. Benefits and risks of the procedure were described. Informed consent was obtained. DESCRIPTION: The patient was brought into the operating room theater. She was placed supine. She had received Lovenox subcutaneously for DVT prophylaxis. Additionally she Peridex oral solution as an oral decontaminant was placed per anesthesia. After general induction, the abdomen was prepped and draped in standard sterile fashion. Ioban draping was placed along the abdomen. A robotic da Lemuel Xi system was prepped and primed. Prior to incision, a timeout protocol was performed and confirmed with the surgical team. Initial attention was brought to removal of the adjustable gastric band port at the left upper abdomen. Proposed incision sites were localized with anesthetic. A transverse 3 cm incision was placed over the adjustable gastric band port site using #11 blade. The incision was deepened to the subcutaneous tissue using electrocautery Bovie cautery. The port was identified and circumferentially dissected free from the surrounding tissues. Once freed, the port was removed from the pocket and placed onto the skin. Attention was now brought to the intra-abdominal component of the procedure the removal of the adjustable gastric band. Incisions were proposed at 12 cm from the xiphoid. Proposed port sites were marked with indelible marker along the anterior axillary line bilaterally, mid clavicular line bilaterally with each port marked 10 cm from each other. A 5 mm 0 degrees laparoscopic trocar entry was performed along the left upper quadrant. The abdomen was insufflated to 15 mmHg pressure, which she tolerated well. Diagnostic laparoscopy demonstrated no injury to bowel, viscera, or mesentery. An 8 mm camera port was placed left lateral to the umbilicus at the epigastrium, 12 cm distal to the xiphoid. Next, 8-mm port was placed along the right mid abdomen. The 5 mm port was exchanged for 8 mm trocar. A medium sized Jonas liver retractor was used to elevate the left lobe of the liver. The robot was docked along the left lateral abdomen. The patient was repositioned in reverse Trendelenburg position, 16-degrees. A 30-degree camera was used. Using a Prograsp for arm 3, including scissors with cautery for arm 1, the robotic system was docked and primed as described. Instruments were interchanged by the child care center assistant director. I had sat at the console. Moderate to severe adhesions along the epigastrium including right upper and lower quadrant and greater omentum to abdominal wall was found. Extensive lysis of adhesions over 30 minutes was performed using vessel sealer and hook cautery to free these adhesions including around the adjustable gastric band. The port was followed with its tubing to the gastric band. The gastrohepatic ligament was scarred from prior surgery. The anterior portion of the stomach was prolapsed around the ALLERGAN band. Using scissors with cautery, the cicatrix of the port was incised. The band was then freed. The adjustable gastric band was removed in total. Evidence of posterior gastric prolapse was identified consistent with complications from adjustable gastric band. The band was unbuckled and cut. The tubing was cut approximately 5 cm distal to the actual adapter. The tubing and port was removed by the child care center assistant director under direct mobilization. The band was removed in total without injury to the stomach. Hemostasis was excellent. I then went to the head of the bed to perform intraoperative esophagogastroduodenoscopy to evaluate for gastritis and any full thickness injury to the stomach. An Olympus gastroscope was passed from the posterior oropharynx down to the esophagus, where the squamocolumnar junction was found LA grade B erosive esophagitis, chronic changes. The stomach was entered and bile was found and suctioned. Moderate gastritis was found within the stomach. Retroflexion of the scope confirmed a Hill grade 2 lower esophageal valve. The stomach was desufflated. The patient tolerated the procedure well. No evidence of leak was encountered from the removal of the band. The scope was removed with desufflation of the stomach. I re-scrubbed into the case. The adjustable gastric band was removed from the abdominal cavity via the left upper abdomen. Diagnostic laparoscopy demonstrated complete removal of all foreign body. All instruments and pneumoperitoneum were evacuated from the abdominal cavity. The port extraction site was hemostatic. The port site was irrigated using normal saline and hydrogen peroxide. The incisions were reapproximated using 4- 0 Monocryl in a subcuticular interrupted fashion. Optifoam dressing was placed over the port extraction site. At the end of the procedure, needle, sponge and instrument counts were verified correct by the surgical assistant certified. The patient had tolerated the procedure well. An abdominal binder was placed. The patient was transferred to Postanesthesia Care Unit in stable condition. Postoperative findings with intraoperative images were discussed with the patient's family who were pleased with the level of care. Plan - Discharge Summary Discharge Rx Participant: No New Discharge Prescriptions: New Ibuprofen [Motrin] 600 mg PO Q8HR PRN #30 tab PRN Reason: Pain Simethicone 40 mg/0.6 ml Drops [Mylicon Drops] 80 mg PO Q6HR PRN #30 ml PRN Reason: Abdominal Distention Acetaminophen Tab [Tylenol Tab] 500 mg PO Q6H PRN #30 tablet PRN Reason: Pain Omeprazole 40 mg PO DAILY #30 capsule.dr Continue Pravastatin Sodium [Pravachol] 10 mg PO HS Lisinopril [Zestril] 10 mg PO HS Furosemide [Lasix] 10 mg PO DAILY PRN PRN Reason: swelling metFORMIN HCL [Glucophage] 500 mg PO DAILY Ergocalciferol [Vitamin D2 (DRISDOL)] 50,000 unit PO TH Venlafaxine HCl [Effexor XR] 225 mg PO HS Discharge Medication List Lisinopril [Zestril] 10 mg PO HS 03/03/15 [History] Pravastatin Sodium [Pravachol] 10 mg PO HS 03/03/15 [History] Furosemide [Lasix] 10 mg PO DAILY PRN 11/20/16 [History] metFORMIN HCL [Glucophage] 500 mg PO DAILY 06/28/18 [History] Ergocalciferol [Vitamin D2 (DRISDOL)] 50,000 unit PO TH 08/30/18 [History] Venlafaxine HCl [Effexor XR] 225 mg PO HS 12/15/18 [History] Acetaminophen Tab [Tylenol Tab] 500 mg PO Q6H PRN #30 tablet 05/22/19 [Rx] Ibuprofen [Motrin] 600 mg PO Q8HR PRN #30 tab 05/22/19 [Rx] Omeprazole 40 mg PO DAILY #30 capsule. 05/22/19 [Rx] Simethicone 40 mg/0.6 ml Drops [Mylicon Drops] 80 mg PO Q6HR PRN #30 ml 05/22/19 [Rx] [facility]ment[facility]Ref[facility] [place] [facility] - 05/26/19 10:00 am Patient Instructions/Handouts: Abdominal Binder (DC), Adjustable Gastric Band Removal (DC) Activity/Diet/Wound Care/Special Instructions: No lifting over 10 pounds in 2 weeks until 06/05/19. May shower. No bath tub soaks for two weeks until 06/05/19. Diet as tolerated. Wear binder for comfort Use Tylenol and ibuprofen scheduled for the next 24-48 hours for best pain relief. Use ice along incisions for the today to prevent swelling. Discharge Disposition: HOME SELF-CARE
[2019-05-22 16:12] VITALS: PULSE 88
[2019-05-22 16:22] VITALS: BP 126/65
== END 2019-05-22 17:00 | disposition home or self-care (01) ==
LOC: OR 11:37
PROVIDERS: ATTEND Surgery Plastic and Reconstructive Surgery
DX: K95.09 Other complications of gastric band procedure (principal); E66.01 Morbid (severe) obesity due to excess calories; E11.9 Type 2 diabetes mellitus without complications; E55.9 Vitamin D deficiency, unspecified; E78.5 Hyperlipidemia, unspecified; F32.9 Major depressive disorder, single episode, unspecified; I11.9 Hypertensive heart disease without heart failure; K21.9 Gastro-esophageal reflux disease without esophagitis; K22.4 Dyskinesia of esophagus; K44.9 Diaphragmatic hernia without obstruction or gangrene; M17.0 Bilateral primary osteoarthritis of knee; N25.81 Secondary hyperparathyroidism of renal origin; Z68.41 Body mass index [BMI] 40.0-44.9, adult; Z79.84 Long term (current) use of oral hypoglycemic drugs; Z90.49 Acquired absence of other specified parts of digestive tract; Z98.51 Tubal ligation status; Z79.899 Other long term (current) drug therapy
CPT/HCPCS: 81025; 43774; J2250; J1100; J2710; J0690; J2405; J2001; J1650; J3010; J1885; J0330; J2704; C9113; J1170

== ENCOUNTER → 2019-05-26 | Outpatient (CLI) | payer OTHER ==
[2019-05-26 10:16] VITALS: BP 114/80; PULSE 87; RESP 16; TEMP 98; BMI 44.9
--- NOTE | 2019-05-26 15:58 | P.PN ---
Subjective Progress Note Date: 05/26/19 She is doing well following band removal. Abdominal binder present. No reports of abdominal pain. She is tolerating diet. Findings of severe intra-abdominal adhesion including gastric prolapse confirmed. Recommend evaluation for conversion of surgery to sleeve secondary to severe adhesions. Objective - Vital Signs Vital signs: Vital Signs Temp 98 F 05/26/19 10:14 Pulse 87 05/26/19 10:14 Resp 16 05/26/19 10:14 BP 114/80 05/26/19 10:14 Pulse Ox Intake & Output 05/25/19 05/26/19 05/26/19 18:59 06:59 18:59 Weight 122.47 kg
== END | disposition home or self-care (01) ==
LOC: BARWHC3 09:54
PROVIDERS: ATTEND Surgery Plastic and Reconstructive Surgery
DX: Z46.51 Encounter for fitting and adjustment of gastric lap band (principal); K66.0 Peritoneal adhesions (postprocedural) (postinfection); K31.89 Other diseases of stomach and duodenum
CPT/HCPCS: 99211

== ENCOUNTER → 2019-06-28 | Outpatient (CLI) | payer OTHER ==
[2019-06-28 15:11] VITALS: BP 118/80; PULSE 96; RESP 16; TEMP 98; BMI 43.2
--- NOTE | 2019-06-28 16:01 | P.PN ---
Subjective Progress Note Date: 06/28/19 DATE OF SERVICE: 06/28/2019 CHIEF COMPLAINT: Complications from adjustable gastric band HISTORY OF PRESENT ILLNESS: Dinorah Ponce is a 48-year-old female status post removal of adjustable gastric band including lysis adhesions 05/22/2019. She is 1 month out. She comes in blood sugars as high as 430s. She has lost 10 pounds in 1 month. She is on new diabetic medications as a result of her morbid o besity. She comes in with troubles with her band leading to her band removal. She has no pain at the band removal site. Intra-operative findings included gastric prolapse. At height of 5 feet 5 inches, her ideal body weight is 149 pounds. She comes in 259 pounds from 269 pounds, 1 month ago. She has lost 10 pounds in 1 month. Her body mass index is down from 44.9 to 43.3. She is 110 pounds overweight. PHYSICAL EXAM: VITAL SIGNS: Height 5 foot 5 inches, weight 259 pounds. BMI 43.3 Vital Signs Temp 98 F 06/28/19 15:08 Pulse 96 06/28/19 15:08 Resp 16 06/28/19 15:08 BP 118/80 06/28/19 15:08 Pulse Ox GENERAL: Well-developed in no acute distress. HEENT: No scleral icterus. Extraocular movements grossly intact. Hears conversational speech. No nasal drainage. NECK: Supple without lymphadenopathy. CHEST: Nonlabored respirations with equal bilateral excursions. CARDIOVASCULAR: Regular rate and regular rhythm. Distal 2+ pulses. ABDOMEN: Obese, soft. Abdominal binder present. Incision is clean, dry and intact MUSCULOSKELETAL: No clubbing, cyanosis. NEURO: No focal or lateralizing signs. Cranial nerves 2 through 12 grossly within normal limits. PSYCH: Appropriate affect. Alert and oriented to person, place and time. SKIN: Good skin turgor. Well perfused. ASSESSMENT: 1. Morbid obesity due to excess calories 2. Body mass index of 44.3 to 43.3 3. Osteoarthritis of the knees. 4. Osteoarthritis of the lower back. 5. Hypertensive heart disease. 6. Gastroesophageal reflux disease 7. Hyperlipidemia 8. Depressive disorder 9. Diabetes type 2 10. Vitamin D deficiency 11. Adjustable gastric band with complications 12. Esophageal dysmotility 13. Dysphagia due to adjustable gastric band 14. Hiatal hernia 15. Secondary hyperparathyroidism 16. Removal of adjustable gastric band 17. Complications from adjustable gastric band PLAN: 1. She has complications from her adjustable gastric band. 2. Recommend re-submit for conversion to gastric bypass secondary to uncontrolled diabetes. Objective - Vital Signs Vital signs: Vital Signs Temp 98 F 06/28/19 15:08 Pulse 96 06/28/19 15:08 Resp 16 06/28/19 15:08 BP 118/80 06/28/19 15:08 Pulse Ox Intake & Output 06/27/19 06/28/19 06/28/19 18:59 06:59 18:59 Weight 117.934 kg - Labs CBC & Chem 7: 06/28/19 16:37 06/28/19 16:37
[2019-06-28 16:59] LABS: HCT 42.6 % (34.0-46.0); HGB 14.5 gm/dL (11.4-16.0); MCH 30.4 pg (25.0-35.0); MCV 89.5 fL (80.0-100.0); Mean Platelet Volume 7.3; Platelet Count 224 k/uL (150-450); RBC 4.75 m/uL (3.80-5.40); RDW 13.8 % (11.5-15.5); WBC 8.7 k/uL (3.8-10.6)
[2019-06-28 17:28] LABS: INR 0.9 (<1.2); Partial Thromboplastin Time 23.2 sec (22.0-30.0); Prothrombin Time 9.5 sec (9.0-12.0)
[2019-06-29 01:42] LABS: Ferritin 63.2 ng/mL (10.0-291.0)
[2019-06-29 01:51] LABS: African American GFR (CKD) 100.3 (60.0-200.0); Albumin/Globulin Ratio 2.63 (1.60-3.17); Anion Gap 14.1 mmol/L (4.00-12.00); BUN/Creat Ratio 16.25 Ratio (12.00-20.00); Calcium 9.7 mg/dL (8.7-10.3); Carbon Dioxide 21.9 mmol/L (21.6-31.8); Chol/HDL Ratio 3.1; Folate, Serum 12.5 ng/mL; Globulin 1.9 g/dL (1.6-3.3); LDL Cholesterol,Calculated 68.8 mg/dL (0.0-131.0); Non-African American GFR(CKD) 86.6 (60.0-200.0); Phosphorus 3.7 mg/dL (2.4-5.1); Potassium 4.2 mmol/L (3.5-5.5); Total Bilirubin 0.7 mg/dL (0.3-1.2); Total Protein 6.9 g/dL (6.2-8.2); VLDL Calculation 40.2 mg/dL (5.00-40.00)
[2019-06-30 11:04] LABS: Zinc, Serum 70 ug/dL (60-130)
[2019-06-30 15:16] LABS: Vitamin A 62 ug/dL (38-106)
[2019-07-02 01:19] LABS: Selenium 110 mcg/L (63-160)
[2019-07-03 08:32] LABS: Vit B1(Thiamine) 86 ug/L (38-122)
== END | disposition home or self-care (01) ==
LOC: BARWHC3 14:50
PROVIDERS: ATTEND Surgery Plastic and Reconstructive Surgery
DX: E66.01 Morbid (severe) obesity due to excess calories (principal); M17.0 Bilateral primary osteoarthritis of knee; I11.9 Hypertensive heart disease without heart failure; K21.9 Gastro-esophageal reflux disease without esophagitis; E78.5 Hyperlipidemia, unspecified; F32.9 Major depressive disorder, single episode, unspecified; E11.9 Type 2 diabetes mellitus without complications; E55.9 Vitamin D deficiency, unspecified; K95.09 Other complications of gastric band procedure; K22.8 Other specified diseases of esophagus; K44.9 Diaphragmatic hernia without obstruction or gangrene; E21.1 Secondary hyperparathyroidism, not elsewhere classified; Z68.41 Body mass index [BMI] 40.0-44.9, adult; Z98.84 Bariatric surgery status
CPT/HCPCS: 84255; 84134; 84425; 80061; 80053; 82607; 82728; 82525; 82746; 83540; 83550; 83735; 84100; 84443; 84590; 84630; 85027; 85610; 85730; 82306; 83970; G0463; 99211

== ENCOUNTER 2020-01-28 01:31 | Emergency (ER) | payer OTHER ==
[2020-01-28 01:41] VITALS: BP 118/86; PULSE 83; RESP 16; TEMP 98.5
--- NOTE | 2020-01-28 01:53 | ED ---
Abdominal Pain HPI - General Chief Complaint: Abdominal Pain Stated Complaint: abd pain Time Seen by Provider: 01/28/20 01:52 Source: patient Mode of arrival: ambulatory Limitations: no limitations - History of Present Illness Initial Comments: Patient is a 49-year-old female presenting to the emergency room with a chief complaint of a UTI. Patient states about 5 days ago she developed dysuria and went to an urgent care was diagnosed with a urinary tract infection although the UA did not supportive. Patient states she still waiting to receive her urine culture results back. Patient states she was started on Macrobid and given one dose of Diflucan. Patient states typically she does develop yeast infections after having been treated for UTI. Patient reports currently she is on day 4 of Macrobid with no improvement in symptoms. Patient also reports using Monistat for a yeast infection. Patient reports there is no foul smell but does report clumpy, thick white discharge. Denies any night sweats or chills. Denies nausea vomiting diarrhea. Denies any back pain. - Related Data Home Medications Medication Instructions Recorded Confirmed Pravastatin Sodium [Pravachol] 10 mg PO HS 03/03/15 06/28/19 lisinopriL [Zestril] 10 mg PO HS 03/03/15 06/28/19 Furosemide [Lasix] 10 mg PO DAILY PRN 11/20/16 06/28/19 metFORMIN HCL [Glucophage] 500 mg PO DAILY 06/28/18 06/28/19 Ergocalciferol [Vitamin D2 50,000 unit PO TH 08/30/18 06/28/19 (DRISDOL)] Venlafaxine HCl [Effexor XR] 225 mg PO HS 12/15/18 06/28/19 Dulaglutide [Trulicity] 1.5 mg SQ WEEKLY 06/28/19 06/28/19 Previous Rx's Medication Instructions Recorded Acetaminophen Tab [Tylenol Tab] 500 mg PO Q6H PRN #30 tablet 05/22/19 Ibuprofen [Motrin] 600 mg PO Q8HR PRN #30 tab 05/22/19 Omeprazole 40 mg PO DAILY #30 capsule. 05/22/19 Simethicone 40 mg/0.6 ml Drops 80 mg PO Q6HR PRN #30 ml 05/22/19 [Mylicon Drops] Cephalexin [Keflex] 500 mg PO Q6HR #28 cap 01/28/20 Fluconazole [Diflucan] 150 mg PO ONCE #2 tab 01/28/20 Phenazopyridine [Pyridium] 200 mg PO TID #6 tablet 01/28/20 Allergies Allergy/AdvReac Type Severity Reaction Status Date / Time No Known Allergies Allergy Verified 01/28/20 01:41 Review of Systems ROS Statement: Those systems with pertinent positive or pertinent negative responses have been documented in the HPI. ROS Other: All systems not noted in ROS Statement are negative. Past Medical History Past Medical History: Diabetes Mellitus, Hyperlipidemia, Hypertension History of Any Multi-Drug Resistant Organisms: None Reported Past Surgical History: Bariatric Surgery, Cholecystectomy, Tubal Ligation Additional Past Surgical History / Comment(s): lap band lap band removal 05-22-19. EGD Past Anesthesia/Blood Transfusion Reactions: Postoperative Nausea & Vomiting (PONV) Past Psychological History: Anxiety Smoking Status: Never smoker Past Alcohol Use History: Rare Past Drug Use History: None Reported - Past Family History Mother Family Medical History: No Reported History General Exam Limitations: no limitations General appearance: alert, in no apparent distress Head exam: Present: atraumatic, normocephalic, normal inspection Eye exam: Present: normal appearance, PERRL, EOMI Pupils: Present: normal accommodation ENT exam: Present: normal exam, normal oropharynx, mucous membranes moist Neck exam: Present: normal inspection, full ROM. Absent: tenderness Respiratory exam: Present: normal lung sounds bilaterally. Absent: respiratory distress, wheezes, rales Cardiovascular Exam: Present: regular rate, normal rhythm, normal heart sounds Extremities exam: Present: normal inspection, full ROM. Absent: tenderness Back exam: Present: normal inspection, full ROM. Absent: tenderness, CVA tenderness (R), CVA tenderness (L) Neurological exam: Present: alert, oriented X3, normal gait Psychiatric exam: Present: normal affect, normal mood Skin exam: Present: warm, dry, intact, normal color Course Vital Signs 01/28/20 01/28/20 01:35 03:15 Temperature 98.5 F 98.5 F Pulse Rate 83 83 Respiratory 16 16 Rate Blood Pressure 118/86 118/86 O2 Sat by Pulse 96 96 Oximetry Medical Decision Making - Medical Decision Making Patient is a 49-year-old female presenting to emergency Department with a chief complaint of UTI. On exam there is no CVA tenderness or abdominal pain. Patient is not complaining of any vaginal itching but has been using Monistat cream for a supposed and yeast infection. UA reveals a regular leukocyte esterase, white blood cells. There is small amounts of blood as well. She is complaining of dysuria. Considering the patient is being treated with Macrobid but no improvement, she will be started on Keflex. She also given 1 g of Rocephin in the ED. Patient was also given Pyridium. Urine culture pending. No nausea vomiting fever or chills. Low concern for pyelonephritis at this time. Patient also discharged with Pyridium. Patient also given a prescription for Diflucan. Strict return parameters were thoroughly discussed the patient was understanding and agreeable. Case discussed with physician. - Lab Data Lab Results 01/28/20 Range/Units 02:06 Urine Color Yellow Urine Appearance Turbid H (Clear) Urine pH 6.0 (5.0-8.0) Ur Specific Ortley 1.027 (1.001-1.035) Urine Protein 1+ H (Negative) Urine Glucose (UA) Negative (Negative) Urine Ketones Negative (Negative) Urine Blood Trace H (Negative) Urine Nitrite Negative (Negative) Urine Bilirubin Negative (Negative) Urine Urobilinogen 3.0 (<2.0) mg/dL Ur Leukocyte Esterase Large H (Negative) Urine RBC 52 H (0-5) /hpf Urine WBC 139 H (0-5) /hpf Urine WBC Clumps Many H (None) /hpf Ur Squamous Epith Cells 10 H (0-4) /hpf Urine Bacteria Many H (None) /hpf Disposition Clinical Impression: Urinary tract infection Disposition: HOME SELF-CARE Condition: Stable Instructions (If sedation given, give patient instructions): Urinary Tract Infection in Women (DC) Additional Instructions: Take prescribed medication as directed. You will be contacted regarding the results of the urine culture. Return to emergency department if symptoms worsen. Prescriptions: Fluconazole [Diflucan] 150 mg PO ONCE #2 tab Cephalexin [Keflex] 500 mg PO Q6HR #28 cap Phenazopyridine [Pyridium] 200 mg PO TID #6 tablet Is patient prescribed a controlled substance at d/c from ED?: No Referrals: Calista Hyde DO [Primary Care Provider] - 1-2 days Time of Disposition: 02:55
[2020-01-28 02:30] LABS: Appearance,Urine Turbid (Clear); Bacteria,Urine Many /hpf; Bilirubin,Urine Negative (Negative); Blood,Urine Trace (Negative); Color,Urine Yellow; Glucose,Urine (UA) Negative (Negative); Ketones,Urine Negative (Negative); Leukocyte Esterase,Urine Large (Negative); Nitrite,Urine Negative (Negative); Protein,Urine 1+ (Negative); RBC,Urine 52 /hpf (0-5); Specific Gravity,Urine 1.027 (1.001-1.035); Squamous Epithelial Cell,Urine 10 /hpf (0-4); WBC,Urine 139 /hpf (0-5)
[2020-01-28] MEDS ORDERED: cefTRIAXone 1,000 MG VIAL (IM USE) IM STA (02:53)
[2020-01-28] MEDS ORDERED: PHENAZOPYRIDINE 100 MG TAB PO ONE (03:15)
== END 2020-01-28 03:20 | disposition home or self-care (01) ==
LOC: EC 01:31
DX: N39.0 Urinary tract infection, site not specified (principal); E11.9 Type 2 diabetes mellitus without complications; E78.5 Hyperlipidemia, unspecified; I10 Essential (primary) hypertension; F41.9 Anxiety disorder, unspecified; Z79.84 Long term (current) use of oral hypoglycemic drugs; Z79.899 Other long term (current) drug therapy; Z90.49 Acquired absence of other specified parts of digestive tract; Z98.84 Bariatric surgery status
CPT/HCPCS: 81001; 87086; 99284

== ENCOUNTER 2021-03-12 13:31 | Emergency (ER) | payer OTHER ==
[2021-03-12] MEDS ORDERED: LORazepam 2 MG/ML INJ IV STA (13:39)
[2021-03-12] MEDS ORDERED: SODIUM CHLORIDE 0.9% 1,000 ML IV STA (13:39)
--- NOTE | 2021-03-12 14:21 | XR ---
EXAMINATION TYPE: XR chest 2V DATE OF EXAM: 03/12/2021 COMPARISON: NONE HISTORY: Difficulty in breathing. Positive COVID. TECHNIQUE: Frontal and lateral views of the chest are obtained. FINDINGS: There is low lung volumes with bilateral multifocal opacities greatest in the periphery of the right lung. No pleural effusion or pneumothorax seen bilaterally. The cardiac silhouette size is mildly enlarged. The osseous structures are intact. IMPRESSION: Lung volumes and mild cardiomegaly with bilateral multifocal opacities most prominent in the right lung consistent with covid-19 infection.
[2021-03-12 14:32] LABS: ALT 33 U/L (4-34); AST 66 U/L (14-36); African American GFR (CKD) >90 (>60 ml/min/1.73 sqM); Albumin 4.2 g/dL (3.5-5.0); Alkaline Phosphatase 106 U/L (38-126); Anion Gap 13 mmol/L; Blood Urea Nitrogen 13 mg/dL (7-17); Calcium 8.9 mg/dL (8.4-10.2); Carbon Dioxide 21 mmol/L (22-30); Chloride 101 mmol/L (98-107); Glucose 148 mg/dL (74-99); Non-African American GFR(CKD) >90 (>60 ml/min/1.73 sqM); Potassium 4.1 mmol/L (3.5-5.1); Sodium 135 mmol/L (137-145); Total Bilirubin 0.9 mg/dL (0.2-1.3); Total Protein 7.4 g/dL (6.3-8.2)
[2021-03-12] MEDS ORDERED: KETOROLAC 15 MG/ML 1 ML VIAL IVP STA (14:48)
[2021-03-12 14:52] LABS: Basophils % (A) 1 %; Eosinophils % (A) 0 %; HCT 41.3 % (34.0-46.0); HGB 14.5 gm/dL (11.4-16.0); Lymphocytes # (A) 0.8 k/uL (1.0-4.8); Lymphocytes % (A) 20 %; MCH 31.3 pg (25.0-35.0); MCV 89.5 fL (80.0-100.0); Monocytes # (A) 0.2 k/uL (0-1.0); Monocytes % (A) 4 %; Neutrophils % (A) 74 %; Platelet Count 153 k/uL (150-450); RBC 4.62 m/uL (3.80-5.40); RDW 13.1 % (11.5-15.5)
--- NOTE | 2021-03-12 15:09 | ED ---
General Adult HPI - General Chief complaint: Shortness of Breath Stated complaint: JENNY, Covid + Time Seen by Provider: 03/12/21 13:37 Source: patient, RN notes reviewed Mode of arrival: EMS Limitations: no limitations - History of Present Illness Initial comments: 50-year-old female complaining of anxiety and Covid-positive for the past 2 weeks. She notes that she's not been taking her medications as she has been feeling weird. Patient notes that she is very anxious at this time and having difficulties breathing and it hurts to breathe. She notes that she was tested for Covid last Wednesday it was positive she notes that she's had symptoms for at least a week longer than the test date. Patient was otherwise a well-appearing 50-year-old female in no apparent distress or pain. She denied any chest pain headache nausea vomiting diarrhea constipation fever fatigue chills. - Related Data Home Medications Medication Instructions Recorded Confirmed Ergocalciferol [Vitamin D2 50,000 unit PO GARRISON 08/30/18 03/12/21 (DRISDOL)] Citalopram Hydrobromide [CeleXA] 30 mg PO HS 03/12/21 03/12/21 Dextroamphetamine/Amphetamine 30 mg PO DAILY 03/12/21 03/12/21 [Adderall Xr] Gabapentin [Neurontin] 900 mg PO TID 03/12/21 03/12/21 LORazepam [Ativan] 0.5 mg PO DAILY PRN 03/12/21 03/12/21 Pravastatin Sodium [Pravachol] 20 mg PO HS 03/12/21 03/12/21 Semaglutide [Ozempic] 0.25 mg SQ GARRISON 03/12/21 03/12/21 Tussin Expectrnt 10 ml PO BID PRN 03/12/21 03/12/21 clonazePAM [KlonoPIN] 0.5 mg PO HS PRN 03/12/21 03/12/21 traZODone HCL [Desyrel] 100 mg PO HS 03/12/21 03/12/21 valACYclovir [Valtrex] 500 mg PO DAILY 03/12/21 03/12/21 Allergies Allergy/AdvReac Type Severity Reaction Status Date / Time No Known Allergies Allergy Verified 03/12/21 14:22 Review of Systems ROS Statement: Those systems with pertinent positive or pertinent negative responses have been documented in the HPI. ROS Other: All systems not noted in ROS Statement are negative. 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 EGD Past Anesthesia/Blood Transfusion Reactions: Postoperative Nausea & Vomiting (PONV) Past Psychological History: Anxiety Smoking Status: Never smoker Past Alcohol Use History: Rare Past Drug Use History: None Reported - Past Family History Mother Family Medical History: No Reported History General Exam Limitations: no limitations General appearance: alert, in no apparent distress Head exam: Present: atraumatic, normocephalic, normal inspection Eye exam: Present: normal appearance, PERRL, EOMI. Absent: scleral icterus, conjunctival injection, periorbital swelling ENT exam: Present: normal exam, mucous membranes moist Neck exam: Present: normal inspection Respiratory exam: Present: normal lung sounds bilaterally. Absent: respiratory distress, wheezes, rales, rhonchi, stridor Cardiovascular Exam: Present: regular rate, normal rhythm, normal heart sounds. Absent: systolic murmur, diastolic murmur, rubs, gallop, clicks GI/Abdominal exam: Present: soft, normal bowel sounds. Absent: distended, tenderness, guarding, rebound, rigid Extremities exam: Present: normal inspection, full ROM, normal capillary refill. Absent: tenderness, pedal edema, joint swelling, calf tenderness Neurological exam: Present: alert, oriented X3 Psychiatric exam: Present: normal affect, normal mood, anxious Skin exam: Present: warm, dry, intact, normal color. Absent: rash Course Vital Signs 03/12/21 13:41 Pulse Rate 89 Respiratory 20 Rate Blood Pressure 114/90 O2 Sat by Pulse 97 Oximetry EKG Findings - EKG Comments: EKG Findings:: Ventricular rate 88 bpm, CT interval 132 ms, QRS duration 82 ms, QTC 440 ms, PRT axes 54/23/44. Normal sinus , normal ECG. Medical Decision Making - Medical Decision Making 50-year-old female complaining of Covid-positive, pain on breathing and anxiety. Basic labs, chest x-ray ordered. Labs unremarkable. Chest x-ray shows bilateral focal infiltrates consistent with COVID-19 infection. Patient was instructed she is with her medications and follow-up with primary care. Case discussed with Dr. Valencia outpatient discharge home. - Lab Data Result diagrams: 03/12/21 13:36 03/12/21 13:36 Lab Results 03/12/21 03/12/21 Range/Units 13:36 13:36 WBC 4.0 (3.8-10.6) k/uL RBC 4.62 (3.80-5.40) m/uL Hgb 14.5 (11.4-16.0) gm/dL Hct 41.3 (34.0-46.0) % MCV 89.5 (80.0-100.0) fL MCH 31.3 (25.0-35.0) pg MCHC 35.0 (31.0-37.0) g/dL RDW 13.1 (11.5-15.5) % Plt Count 153 (150-450) k/uL MPV 8.0 Neutrophils % 74 % Lymphocytes % 20 % Monocytes % 4 % Eosinophils % 0 % Basophils % 1 % Neutrophils # 3.0 (1.3-7.7) k/uL Lymphocytes # 0.8 L (1.0-4.8) k/uL Monocytes # 0.2 (0-1.0) k/uL Eosinophils # 0.0 (0-0.7) k/uL Basophils # 0.0 (0-0.2) k/uL Sodium 135 L (137-145) mmol/L Potassium 4.1 (3.5-5.1) mmol/L Chloride 101 (98-107) mmol/L Carbon Dioxide 21 L (22-30) mmol/L Anion Gap 13 mmol/L BUN 13 (7-17) mg/dL Creatinine 0.60 (0.52-1.04) mg/dL Est GFR (CKD-EPI)AfAm >90 (>60 ml/min/1.73 sqM) Est GFR (CKD-EPI)NonAf >90 (>60 ml/min/1.73 sqM) Glucose 148 H (74-99) mg/dL Calcium 8.9 (8.4-10.2) mg/dL Total Bilirubin 0.9 (0.2-1.3) mg/dL AST 66 H (14-36) U/L ALT 33 (4-34) U/L Alkaline Phosphatase 106 (38-126) U/L Total Protein 7.4 (6.3-8.2) g/dL Albumin 4.2 (3.5-5.0) g/dL - EKG Data -: EKG Interpreted by Me EKG shows normal: sinus rhythm Rate: normal EKG Comments: Ventricular rate 88 bpm, CT interval 132 ms, QRS duration 82 ms, QTC 440 ms, PRT axes 54/23/44. Normal sinus , normal ECG. - Radiology Data Radiology results: report reviewed, image reviewed Asked x-ray: Lung volumes and mild cardiomegaly with bilateral multifocal opacities most prominent in the right lung consistent COVID-19 infection. Disposition Clinical Impression: COVID, Anxiety Disposition: HOME SELF-CARE Condition: Stable Instructions (If sedation given, give patient instructions): Coronavirus Disease 2019 (COVID-19), Generalized Anxiety Disorder (ED) Additional Instructions: Please return to the Emergency Department if symptoms worsen or any other concerns. Follow-up with primary care 1-2 days. Continue take medications as prescribed. Is patient prescribed a controlled substance at d/c from ED?: No Referrals: Calista Hyde DO [Primary Care Provider] - 1-2 days Time of Disposition: 15:09
[2021-03-12] MEDS ORDERED: ACETAMINOPHEN TAB 500 MG TAB PO STA (15:38)
[2021-03-12 15:58] VITALS: BP 116/67; PULSE 80; RESP 18; TEMP 100.8
== END 2021-03-12 15:58 | disposition home or self-care (01) ==
LOC: EC 13:31
DX: U07.1 COVID-19 (principal); F41.9 Anxiety disorder, unspecified; E11.40 Type 2 diabetes mellitus with diabetic neuropathy, unspecified; I10 Essential (primary) hypertension; E78.5 Hyperlipidemia, unspecified; Z79.899 Other long term (current) drug therapy
CPT/HCPCS: 36415; 93005; 80053; 85025; 71046; 96374; 96375; 96361; 99285; J2060; J1885

== ENCOUNTER 2021-03-14 08:46 | Emergency (ER) | payer OTHER ==
[2021-03-14] MEDS ORDERED: ACETAMINOPHEN TAB 500 MG TAB PO STA (09:14)
[2021-03-14] MEDS ORDERED: ALBUTEROL HFA INHALER INHALATION PRN (09:14)
[2021-03-14] MEDS ORDERED: ALBUTEROL HFA INHALER INHALATION STA (09:14)
[2021-03-14] MEDS ORDERED: ACETAMINOPHEN TAB 500 MG TAB PO PRN (09:14)
--- NOTE | 2021-03-14 09:17 | ED ---
General Adult HPI - General Chief complaint: Shortness of Breath Stated complaint: JENNY Time Seen by Provider: 03/14/21 09:06 Source: patient, EMS, RN notes reviewed Mode of arrival: EMS Limitations: no limitations - History of Present Illness Initial comments: Patient is a pleasant 50-year-old female presenting to the emergency department with complaints of cough and dyspnea. Patient was diagnosed positive for open 19 infection on March 04. Patient states her symptoms have been occurring for more than 2 weeks now. Patient is unclear whether or not she received monoclonal antibodies. Patient complains of cough and dyspnea. Patient complains of myalgias. Patient does have some fevers chills. Patient has had some diarrhea. Patient does have loss of taste and smell. - Related Data Home Medications Medication Instructions Recorded Confirmed Ergocalciferol [Vitamin D2 50,000 unit PO GARRISON 08/30/18 03/14/21 (DRISDOL)] Citalopram Hydrobromide [CeleXA] 30 mg PO HS 03/12/21 03/14/21 Dextroamphetamine/Amphetamine 30 mg PO DAILY 03/12/21 03/14/21 [Adderall Xr] Gabapentin [Neurontin] 900 mg PO TID 03/12/21 03/14/21 LORazepam [Ativan] 0.5 mg PO DAILY PRN 03/12/21 03/14/21 Pravastatin Sodium [Pravachol] 20 mg PO HS 03/12/21 03/14/21 Semaglutide [Ozempic] 0.25 mg SQ GARRISON 03/12/21 03/14/21 Tussin Expectrnt 10 ml PO BID PRN 03/12/21 03/14/21 clonazePAM [KlonoPIN] 0.5 mg PO HS PRN 03/12/21 03/14/21 traZODone HCL [Desyrel] 100 mg PO HS 03/12/21 03/14/21 valACYclovir [Valtrex] 500 mg PO DAILY 03/12/21 03/14/21 Previous Rx's Medication Instructions Recorded Albuterol Sulfate [Albuterol 2 puff INHALATION Q6H PRN #8.5 gm 03/14/21 Sulfate Hfa] Allergies Allergy/AdvReac Type Severity Reaction Status Date / Time No Known Allergies Allergy Verified 03/14/21 09:50 Review of Systems ROS Statement: Those systems with pertinent positive or pertinent negative responses have been documented in the HPI. ROS Other: All systems not noted in ROS Statement are negative. Constitutional: Reports: fever, chills Eyes: Denies: eye pain ENT: Denies: ear pain Respiratory: Reports: cough, dyspnea Cardiovascular: Denies: chest pain Endocrine: Reports: fatigue Gastrointestinal: Reports: diarrhea. 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 EGD Past Anesthesia/Blood Transfusion Reactions: Postoperative Nausea & Vomiting (PONV) Past Psychological History: Anxiety Smoking Status: Never smoker Past Alcohol Use History: Rare Past Drug Use History: None Reported - Past Family History Mother Family Medical History: No Reported History General Exam Limitations: no limitations General appearance: alert, in no apparent distress Head exam: Present: normocephalic Eye exam: Present: normal appearance ENT exam: Present: normal oropharynx Neck exam: Present: normal inspection Respiratory exam: Present: normal lung sounds bilaterally Cardiovascular Exam: Present: regular rate, normal rhythm GI/Abdominal exam: Present: soft. Absent: tenderness Extremities exam: Present: normal inspection. Absent: pedal edema, calf tenderness Neurological exam: Present: alert Psychiatric exam: Present: normal affect, normal mood Skin exam: Present: normal color Course Vital Signs 03/14/21 03/14/21 03/14/21 08:50 10:39 12:11 Temperature 98.7 F Pulse Rate 85 78 90 Respiratory 24 18 16 Rate Blood Pressure 123/84 129/89 125/77 O2 Sat by Pulse 96 93 L 95 Oximetry EKG Findings - EKG Comments: EKG Findings:: Normal sinus rhythm with a rate of 83. AR 138. QRS 84. QT 386. QTc 453. Normal axis. Normal QRS. No acute ST change. Medical Decision Making - Medical Decision Making Patient reevaluated and resting comfortably in bed. Patient is feeling better. Pulse ox is 95% on room air. Patient updated on results and need for follow-up. - Lab Data Result diagrams: 03/14/21 09:16 03/14/21 09:16 Lab Results 03/14/21 03/14/21 03/14/21 Range/Units 09:16 09:16 09:16 WBC 6.0 (3.8-10.6) k/uL RBC 4.60 (3.80-5.40) m/uL Hgb 14.1 (11.4-16.0) gm/dL Hct 41.4 (34.0-46.0) % MCV 90.0 (80.0-100.0) fL MCH 30.7 (25.0-35.0) pg MCHC 34.1 (31.0-37.0) g/dL RDW 13.2 (11.5-15.5) % Plt Count 172 (150-450) k/uL MPV 7.5 Neutrophils % 75 % Lymphocytes % 20 % Monocytes % 3 % Eosinophils % 0 % Basophils % 0 % Neutrophils # 4.5 (1.3-7.7) k/uL Lymphocytes # 1.2 (1.0-4.8) k/uL Monocytes # 0.2 (0-1.0) k/uL Eosinophils # 0.0 (0-0.7) k/uL Basophils # 0.0 (0-0.2) k/uL PT 9.3 (9.0-12.0) sec INR 0.8 (<1.2) APTT 23.6 (22.0-30.0) sec D-Dimer 0.70 H (<0.60) mg/L FEU Sodium 138 (137-145) mmol/L Potassium 3.9 (3.5-5.1) mmol/L Chloride 102 (98-107) mmol/L Carbon Dioxide 20 L (22-30) mmol/L Anion Gap 16 mmol/L BUN 9 (7-17) mg/dL Creatinine 0.55 (0.52-1.04) mg/dL Est GFR (CKD-EPI)AfAm >90 (>60 ml/min/1.73 sqM) Est GFR (CKD-EPI)NonAf >90 (>60 ml/min/1.73 sqM) Glucose 134 H (74-99) mg/dL Plasma Lactic Acid Herve (0.7-2.0) mmol/L Calcium 8.9 (8.4-10.2) mg/dL Magnesium 2.1 (1.6-2.3) mg/dL Total Bilirubin 1.0 (0.2-1.3) mg/dL AST 61 H (14-36) U/L ALT 24 (4-34) U/L Alkaline Phosphatase 88 (38-126) U/L Lactate Dehydrogenase 1346 H (313-618) U/L C-Reactive Protein 6.9 H (<1.0) mg/dL Total Protein 8.1 (6.3-8.2) g/dL Albumin 4.4 (3.5-5.0) g/dL 03/14/21 Range/Units 09:16 WBC (3.8-10.6) k/uL RBC (3.80-5.40) m/uL Hgb (11.4-16.0) gm/dL Hct (34.0-46.0) % MCV (80.0-100.0) fL MCH (25.0-35.0) pg MCHC (31.0-37.0) g/dL RDW (11.5-15.5) % Plt Count (150-450) k/uL MPV Neutrophils % % Lymphocytes % % Monocytes % % Eosinophils % % Basophils % % Neutrophils # (1.3-7.7) k/uL Lymphocytes # (1.0-4.8) k/uL Monocytes # (0-1.0) k/uL Eosinophils # (0-0.7) k/uL Basophils # (0-0.2) k/uL PT (9.0-12.0) sec INR (<1.2) APTT (22.0-30.0) sec D-Dimer (<0.60) mg/L FEU Sodium (137-145) mmol/L Potassium (3.5-5.1) mmol/L Chloride (98-107) mmol/L Carbon Dioxide (22-30) mmol/L Anion Gap mmol/L BUN (7-17) mg/dL Creatinine (0.52-1.04) mg/dL Est GFR (CKD-EPI)AfAm (>60 ml/min/1.73 sqM) Est GFR (CKD-EPI)NonAf (>60 ml/min/1.73 sqM) Glucose (74-99) mg/dL Plasma Lactic Acid Herve 1.1 (0.7-2.0) mmol/L Calcium (8.4-10.2) mg/dL Magnesium (1.6-2.3) mg/dL Total Bilirubin (0.2-1.3) mg/dL AST (14-36) U/L ALT (4-34) U/L Alkaline Phosphatase (38-126) U/L Lactate Dehydrogenase (313-618) U/L C-Reactive Protein (<1.0) mg/dL Total Protein (6.3-8.2) g/dL Albumin (3.5-5.0) g/dL - Radiology Data Radiology results: report reviewed (CT angiogram of the chest shows no large central or definite pulmonary embolism. Motion artifact limiting exam. Bilateral multifocal patchy pneumonitis. Lymph nodes.), image reviewed Disposition Clinical Impression: COVID-19 Disposition: HOME SELF-CARE Condition: Stable Instructions (If sedation given, give patient instructions): Coronavirus Disease 2019 (COVID-19) Additional Instructions: Please do follow-up with primary care physician in the next day or 2 for recheck. Inhaler as needed. [id number] Tylenol or Motrin as needed. [id number] vitamin C, vitamin, and zinc to help. Melatonin may be of benefit at nighttime. Return for difficulty breathing, not tolerating fluids, worsening symptoms or other concerns. Prescription for inhaler has been sent to your pharmacy. Prescriptions: Albuterol Sulfate [Albuterol Sulfate Hfa] 2 puff INHALATION Q6H PRN #8.5 gm PRN Reason: Shortness Of Breath Is patient prescribed a controlled substance at d/c from ED?: No Referrals: Calista Hyde DO [Primary Care Provider] - 1-2 days Time of Disposition: 12:48
[2021-03-14 09:25] LABS: Basophils % (A) 0 %; Eosinophils % (A) 0 %; HCT 41.4 % (34.0-46.0); HGB 14.1 gm/dL (11.4-16.0); Lymphocytes # (A) 1.2 k/uL (1.0-4.8); Lymphocytes % (A) 20 %; MCH 30.7 pg (25.0-35.0); MCHC 34.1 g/dL (31.0-37.0); Mean Platelet Volume 7.5; Monocytes # (A) 0.2 k/uL (0-1.0); Monocytes % (A) 3 %; Neutrophils # (A) 4.5 k/uL (1.3-7.7); Neutrophils % (A) 75 %; Platelet Count 172 k/uL (150-450); RDW 13.2 % (11.5-15.5)
[2021-03-14 09:42] LABS: INR 0.8 (<1.2)
[2021-03-14 09:43] LABS: Partial Thromboplastin Time 23.6 sec (22.0-30.0); Prothrombin Time 9.3 sec (9.0-12.0)
[2021-03-14 09:47] LABS: ALT 24 U/L (4-34); African American GFR (CKD) >90 (>60 ml/min/1.73 sqM); Albumin 4.4 g/dL (3.5-5.0); Anion Gap 16 mmol/L; Blood Urea Nitrogen 9 mg/dL (7-17); C Reactive Protein 6.9 mg/dL (<1.0); Calcium 8.9 mg/dL (8.4-10.2); Carbon Dioxide 20 mmol/L (22-30); Chloride 102 mmol/L (98-107); Glucose 134 mg/dL (74-99); Non-African American GFR(CKD) >90 (>60 ml/min/1.73 sqM); Sodium 138 mmol/L (137-145); Total Protein 8.1 g/dL (6.3-8.2)
--- NOTE | 2021-03-14 09:48 | XR ---
EXAMINATION TYPE: XR chest 1V portable DATE OF EXAM: 03/14/2021 COMPARISON: 03/12/2021 HISTORY: Shortness of breath TECHNIQUE: Single frontal view of the chest is obtained. FINDINGS: Diffuse bilateral infiltrates greater on the right. Heart size normal. Limited inspiration . No pneumothorax or pleural effusion. IMPRESSION: Bilateral multifocal pneumonia.
[2021-03-14 09:51] LABS: AST 61 U/L (14-36); Alkaline Phosphatase 88 U/L (38-126); Magnesium 2.1 mg/dL (1.6-2.3); Potassium 3.9 mmol/L (3.5-5.1)
[2021-03-14 09:52] LABS: LDH 1346 U/L (313-618)
[2021-03-14] MEDS ORDERED: IBUPROFEN 600 MG TAB PO STA (10:31)
--- NOTE | 2021-03-14 10:47 | CT ---
EXAMINATION TYPE: CT angio chest DATE OF EXAM: 03/14/2021 COMPARISON: Radiograph same day HISTORY: 50 year-old female shortness of breath, dyspnea JENNY TECHNIQUE: Contiguous axial scanning of the chest performed with IV Contrast, patient injected with 6 6 mL of Isovue 370. Coronal/sagittal MIP reconstructions performed. CT DLP: 359.6 mGycm Automated exposure control for dose reduction was used. FINDINGS: Heart upper limits of normal in size without pericardial effusion. No flattening of the interventricu lar septum reflux of contrast into the hepatic veins. Aorta normal caliber with conventional arch vessel branching anatomy. Mildly enlarged upper right par atracheal lymph node measures 1.2 cm. Borderline size 9 mm lower right paratracheal lymph node. Promi nent 1.1 cm subcarinal lymph node. Mildly enlarged right hilar lymph node measures 1.5 cm. Findings l ikely reactive. While there is satisfactory opacification of the pulmonary arterial system, there is diffuse breathin g motion artifact. No large central or definite lobar branch pulmonary embolus. Many of the segmental and more distal arterial branches are essentially nondiagnostic and emboli in these locations cannot be excluded on the basis of this exam. Multifocal patchy predominantly peripheral and peribronchial vascular groundglass areas of consolidat ion. No pleural effusion. Visualized upper abdomen shows mild splenomegaly of 14.4 cm. There is also low attenuation of liver c ompatible with hepatic steatosis. Bones: No osseous destructive process. IMPRESSION: 1. DIFFUSE BREATHING MOTION LIMITING THE EXAM. NO LARGE CENTRAL OR DEFINITE LOBAR BRANCH PULMONARY EM BOLUS. MANY OF THE SEGMENTAL AND MORE DISTAL ARTERIAL BRANCHES ARE ESSENTIALLY NONDIAGNOSTIC AND EMBO LI IN THESE LOCATIONS CANNOT BE ADEQUATELY EXCLUDED ON THE BASIS OF THIS EXAM. 2. BILATERAL MULTIFOCAL PATCHY PNEUMONITIS, CORRELATE FOR COVID PNEUMONIA. 3. SOME REACTIVE MEDIASTINAL AND RIGHT HILAR LYMPH NODES MEASURING UP TO 1.5 CM. THREE-MONTH FOLLOW-U P CT TO ENSURE RESOLUTION OF THESE FINDINGS. 4. HEPATIC STEATOSIS AND MILD SPLENOMEGALY OF 14.4 CM.
[2021-03-14 12:59] VITALS: BP 121/83; PULSE 83; RESP 18; TEMP 98.1
[2021-03-14] MEDS ORDERED: ALBUTEROL HFA INHALER INHALATION SCH (14:00)
== END 2021-03-14 13:16 | disposition home or self-care (01) ==
LOC: EC 08:46
DX: U07.1 COVID-19 (principal); I10 Essential (primary) hypertension; E11.9 Type 2 diabetes mellitus without complications; E78.5 Hyperlipidemia, unspecified; F41.9 Anxiety disorder, unspecified; Z98.84 Bariatric surgery status; Z90.49 Acquired absence of other specified parts of digestive tract; Z98.51 Tubal ligation status
CPT/HCPCS: 99285; 36415; 94640; 93005; 85379; 80053; 82728; 83605; 83615; 83735; 85025; 85610; 85730; 86140; 84145; 71045; 71275; Q9967

== ENCOUNTER → 2022-01-16 | Outpatient (CLI) | payer OTHER ==
--- NOTE | 2022-01-16 07:32 | CT ---
EXAMINATION TYPE: CT lumbar spine wo con CT DLP: 1928.6 mGycm, Automated exposure control for dose reduction was used. DATE OF EXAM: 01/16/2022 7:08 AM COMPARISON: CT abdomen pelvis 03/03/2015. CLINICAL INDICATION:Female, 51 years old with history of S32.010A wedge compression fx; TECHNIQUE: Multiple axial images were obtained from the midportion of T11 through the sacroiliac yogesh nts. Soft tissue and bone windows in coronal and sagittal planes were obtained and reviewed. 3-D ref ormats of the bones were created on a separate workstation and submitted for review. FINDINGS: Alignment: There are 5 lumbar type vertebral bodies within normal alignment. Bone: No evidence of fracture is identified. There is multilevel minimal osteophyte formation. Facet arthropathy worse in the lower lumbar spine. L1 has minimal superior endplate compression approximat dwayne 25% height loss. No retropulsion. Discs: T12-L1: No spinal canal or neural foraminal stenosis is identified. L1-L2: No spinal canal or neural foraminal stenosis is identified. L2-L3: No spinal canal or neural foraminal stenosis is identified. L3-L4: No spinal canal or neural foraminal stenosis is identified. L4-L5: No spinal canal or neural foraminal stenosis is identified. L5-S1: No spinal canal or neural foraminal stenosis is identified. Other: Nonobstructing left renal calculus measuring 11 mm. IMPRESSION: 1. No evidence of fracture of the lumbar spine. 2. L1 vertebral body compression deformity of the superior endplate with 25% height loss. 3. Minimal disc degeneration changes throughout the spine, no significant spinal or neural foraminal stenosis. 4. Nonobstructing left renal calculus. [facility], 01/16/2022 7:08 AM, [id number], [id number], CT lumbar spine wo con
== END | disposition home or self-care (01) ==
LOC: RADCTMAIN 06:44
PROVIDERS: ATTEND Neurological Surgery
DX: S32.010A Wedge compression fracture of first lumbar vertebra, initial encounter for closed fracture (principal); M51.26 Other intervertebral disc displacement, lumbar region; N20.0 Calculus of kidney
CPT/HCPCS: 72131

== ENCOUNTER → 2022-11-11 | Outpatient (CLI) | payer MEDICARE, OTHER ==
--- NOTE | 2022-11-11 13:29 | CT ---
EXAMINATION TYPE: CT chest wo con DATE OF EXAM: 11/11/2022 COMPARISON: CTA chest March 14, 2021 HISTORY: R91.1,R05.1,J40 CT DLP: 452.6 mGycm. Automated Exposure Control for Dose Reduction was Utilized. TECHNIQUE: CT scan of the thorax is performed without IV contrast. FINDINGS: LUNGS: The lungs are now grossly clear, there is no concerning parenchymal mass or nodule identified. No significant peripheral reticulation or fibrotic changes are seen. There is no pleural effusion or pneumothorax seen. The tracheobronchial tree is patent. MEDIASTINUM: Lack of IV contrast is noted to limit evaluation for mediastinal and especially hilar ad enopathy. There are no definitive new greater than 1 cm mediastinal lymph nodes. No cardiomegaly or pericardial effusion is seen. OTHER: Surgical changes just below diaphragm possibly from Vaishnavi fundoplication surgery are redemons trated. There is partial visualization of calculus in the upper to midpole left kidney measuring at l east 11 mm long axis axial image 57. This was present on recent lumbar spine CT January 16, 2022. Mild -to-moderate multilevel spurring in the thoracic spine is redemonstrated. IMPRESSION: No significant acute or chronic pulmonary process on current study.
== END | disposition home or self-care (01) ==
LOC: RADCTMAIN 12:46
PROVIDERS: ATTEND Family Medicine
DX: J40 Bronchitis, not specified as acute or chronic (principal); R91.1 Solitary pulmonary nodule; R05.1 Acute cough
CPT/HCPCS: 71250